=== PATIENT | female | born 1990 | race African-American/Black ===

== ENCOUNTER 2019-01-14 13:35 | Emergency (ER) | payer SELFPAY ==
[~2019-01-14] VITALS: Ht 167.6 cm; Wt 71.2 kg
--- OUTSIDE RECORDS SUMMARY | 2019-01-14 13:38 | XMS REPORT | Clinical Summary ---
Author Author POLINA [facility] Organization [facility] Address Unknown Phone Unavailable Care Team Providers Care Winch Driver Name Role Phone Pcp, No PCP Unavailable Allergies No Known Allergies Medications End Date Status Medication Sig Dispensed Refills Start Date 08/08/2018 ibuprofen (ADVIL,MOTRIN) Take 1 tablet 21 tablet 0 800 MG tablet (800 mg 9 total) by mouth 3 (three) times daily for 7 days. Active Problems Problem Noted Date Leukocytes in urine 08/31/2014 Pelvic pain complicating 08/31/2014 Encounters Care Team Description Date Type Specialty Asher Lopez MD Acute bilateral low back pain without sciatica (Primary Dx) 12/25/2018 Emergency Emergency Medicine 12/25/2018 Travel Hortencia Elizabeth MD Sore throat (Primary Dx); Cough; Cervical adenopathy; Strep pharyngitis 08/01/2018 Emergency Emergency Medicine 08/01/2018 Travel after 01/13/2018 Family History Medical History Relation Name Comments Unremarkable Neg Hx Social History Date Tobacco Use Types Packs/Day Years Used Never Smoker Smokeless Tobacco: Never Used Alcohol Use Drinks/Week oz/Week Comments No Sex Assigned at Date Recorded Not on file Industry Job Start Date Occupation Not on file Not on file Not on file Travel End Travel History Travel Start No recent travel history available. Last Filed Vital Signs Time Taken Vital Sign Reading 12/25/2018 3:43 PM CDT Blood Pressure 119/58 12/25/2018 3:43 PM CDT Pulse 64 12/25/2018 3:43 PM CDT Temperature 36.8 C (98.2 F) 12/25/2018 3:43 PM CDT Respiratory Rate 18 12/25/2018 3:43 PM CDT Oxygen Saturation 98% - Inhaled Oxygen - Concentration 12/25/2018 3:43 PM CDT Weight 76.2 kg (168 lb) - Height - 12/25/2018 3:43 PM CDT Body Mass Index 26.31 Plan of Treatment Not on file Procedures Comments Procedure Name Priority Date/Time Associated Diagnosis SCREEN, URINE STAT 12/25/2018 3:51 PM CDT URINALYSIS W/ MICROSCOPIC STAT 12/25/2018 3:51 PM CDT RAPID STREP A SCREEN STAT 08/01/2018 1:05 PM BUSINESS MAIL ENTRY CLERK after 01/13/2018 Results * Screen, urine (12/25/2018 3:51 PM CDT) Preg Test, Ur Negative [facility], [facility] Specimen Urine Performing Organization Address City/State/Zipcode Phone Number [facility] [phone] [place], [place] [id number] [facility], [facility], [facility] * Urinalysis w/Microscopic (12/25/2018 3:51 PM CDT) Color, UA Yellow [facility] Clarity, UA Clear [facility] Specific [place], UA 1.002Comment: Test performed 1.001 - 1.035 [facility] on refractometer [facility] pH, UA 6.5 5.0 - 8.0 [facility] Protein, UA Negative Negative [facility] Glucose, UA Negative Negative [facility] Ketones, UA Negative Negative [facility] Bilirubin, UA Negative Negative [facility], [facility], [facility] Blood, UA Negative Negative [facility] Nitrite, UA Negative Negative [facility] Leukocytes, UA Negative Negative [facility] Urobilinogen, UA 0.2 0.2 - 1.0 mg/dL [facility] Bacteria, UA None Seen [facility] RBC, UA <5 /HPF [facility] WBC, UA <5 /HPF [facility] SQUAMOUS EPITHELIAL <5 /HPF [facility] Specimen Source [facility] Specimen Urine Performing Organization Address City/[facility]/Zipcode Phone Number [address] [address] [facility] * Rapid Strep A screen (08/01/2018 1:05 PM BUSINESS MAIL ENTRY CLERK) Strep A Ag Positive (A) Negative [facility] Specimen Throat Performing Organization Address City/[facility]/Zipcode Phone Number [address] [address] [facility] after 01/13/2018
--- OUTSIDE RECORDS SUMMARY | 2019-01-14 13:38 | XMS REPORT ---
Author Author [facility] Address Unknown Phone Unavailable Care Team Providers Care Single Ending Machine Operator Name Role Phone MARC LOPEZ Unavailable Unavailable LAWANDA PRO Unavailable Unavailable RAPHAEL WALTER Unavailable Unavailable DAVID GARCIA Unavailable Unavailable Problems This patient has no known problems. Allergies, Adverse Reactions, Alerts This patient has no known allergies or adverse reactions. Medications This patient has no known medications. Results Test Description Test Time Test Comments Text Results Atomic Results Result Comments URINALYSIS W/ MICROSCOPIC 2018-12-25 16:01:00 COLOR (BEAKER) (test amce=079) Yellow CLARITY (BEAKER) (test owtm=488) Clear SPECIFIC GRAVITY UA (BEAKER) (test vdmk=203) 1.002 1.001-1.035 Test performed on refractometer PH UA (BEAKER) (test dmve=935) 6.5 5.0-8.0 PROTEIN UA (BEAKER) (test rddl=702) Negative Negative GLUCOSE UA (BEAKER) (test lxts=628) Negative Negative KETONES UA (BEAKER) (test rjkz=436) Negative Negative BILIRUBIN UA (BEAKER) (test ohha=077) Negative Negative BLOOD UA (BEAKER) (test csxp=696) Negative Negative NITRITE UA (BEAKER) (test ujno=137) Negative Negative LEUKOCYTE ESTERASE UA (BEAKER) (test tpog=074) Negative Negative UROBILINOGEN UA (BEAKER) (test zzsf=699) 0.2 mg/dL 0.2-1.0 BACTERIA (BEAKER) (test knpk=973) None Seen RBC UA-MANUAL (BEAKER) (test bryi=8959) <5 /HPF WBC UA-MANUAL (BEAKER) (test veby=9723) <5 /HPF SQUAMOUS EPITHELIAL MANUAL (BEAKER) (test kevj=7074) <5 /HPF SOURCE(BEAKER) (test pulq=7494) SCREEN, [id number] 15:58:00* Test Item Value Reference Range Comments TEST URINE (BEAKER) (test xyxd=354) Negative RAPID STREP A [id number] 13:27:00* Test Item Value Reference Range Comments STREP A ANTIGEN (BEAKER) (test jltb=719) Positive Negative CBC W/PLT COUNT & AUTO [id number] 23:32:00* Test Item Value Reference Range Comments WHITE BLOOD CELL COUNT (BEAKER) (test gvsi=757) 7.1 10e3/i? L 4.0-10.0 RED BLOOD CELL COUNT (BEAKER) (test reuw=268) 3.89 10e6/i? L 4.00-5.00 HEMOGLOBIN (BEAKER) (test yghm=964) 11.7 g/dL 12.0-15.0 HEMATOCRIT (BEAKER) (test nzdp=786) 36.3 % 36.0-45.0 MEAN CORPUSCULAR VOLUME (BEAKER) (test ylay=737) 93.2 fL 82.0-99.0 MEAN CORPUSCULAR HEMOGLOBIN (BEAKER) (test gkjc=962) 30.0 pg 27.0-33.0 MEAN CORPUSCULAR HEMOGLOBIN CONC (BEAKER) (test mzqg=945) 32.2 g/dL 32.0-36.0 RED CELL DISTRIBUTION WIDTH (BEAKER) (test dmxx=407) 12.0 % 10.3-14.2 PLATELET COUNT (BEAKER) (test cquh=861) 170 10e3/i? L 150-430 MEAN PLATELET VOLUME (BEAKER) (test liez=164) 9.2 fL 6.5-10.5 NEUTROPHILS RELATIVE PERCENT (BEAKER) (test bvuh=411) 43 % LYMPHOCYTES RELATIVE PERCENT (BEAKER) (test jhut=309) 44 % MONOCYTES RELATIVE PERCENT (BEAKER) (test rkwx=950) 8 % EOSINOPHILS RELATIVE PERCENT (BEAKER) (test qhsx=466) 5 % BASOPHILS RELATIVE PERCENT (BEAKER) (test mizr=680) 1 % NEUTROPHILS ABSOLUTE COUNT (BEAKER) (test jubg=641) 3.03 10e3/i? L 1.80-8.00 LYMPHOCYTES ABSOLUTE COUNT (BEAKER) (test teuj=174) 3.13 10e3/i? L 1.48-4.50 MONOCYTES ABSOLUTE COUNT (BEAKER) (test qmnu=966) 0.57 10e3/i? L 0.00-1.30 EOSINOPHILS ABSOLUTE COUNT (BEAKER) (test rtio=543) 0.32 10e3/i? L 0.00-0.50 BASOPHILS ABSOLUTE COUNT (BEAKER) (test mxkg=538) 0.04 10e3/i? L 0.00-0.20 BASIC METABOLIC [id number] 23:28:00* Test Item Value Reference Range Comments SODIUM (BEAKER) (test mycq=317) 141 meq/L 135-148 POTASSIUM (BEAKER) (test howl=570) 3.5 meq/L 3.6-5.5 CHLORIDE (BEAKER) (test nuyw=772) 106 meq/L 98-106 CO2 (BEAKER) (test bubb=545) 25 meq/L 24-32 BLOOD UREA NITROGEN (BEAKER) (test eqnt=570) 8 mg/dL 10-26 CREATININE (BEAKER) (test iwgb=388) 0.66 mg/dL 0.50-1.20 GLUCOSE RANDOM (BEAKER) (test uvzb=355) 98 mg/dL 70-110 CALCIUM (BEAKER) (test oskk=567) 9.1 mg/dL 8.5-10.5 EGFR (BEAKER) (test uzbd=7159) 128 mL/min/1.73 sq m ESTIMATED GFR IS NOT ACCURATE CREATININE CLEARANCE IN PREDICTING GLOMERULAR FILTRATION RATE. ESTIMATED GFR IS NOT APPLICABLE FOR DIALYSIS PATIENTS. CREATINE KINASE (CK)2017-12-31 23:28:00* Test Item Value Reference Range Comments CREATINE KINASE TOTAL (BEAKER) (test iegw=852) 58 U/L 25-235 SCREEN, [id number] 23:20:00* Test Item Value Reference Range Comments TEST URINE (BEAKER) (test mfot=484) Negative RAD, CHEST, 2 [id number] 20:24:00Reason for exam:->SHORTNESS OF BREATHIs the patient ?->NoShould this be performed at the bedside?->NoFINAL REPORT Examination: Two view Chest X-ray. CLINICAL HISTORY: Shortness of breath COMPARISON:None. The cardiomediastinal and hilar c ontours are unremarkable. There is no focal consolidation, pleural effusion, pne umothorax or evidence of overt pulmonary edema. There is no acute bony abnorma lity. IMPRESSION: No acute abnormality. Signed: Jamel Davies MDReport Verified Date/Time: 10/21/2017 20:24:17 Reading [facility] [address] [facility] [place] [facility] SCREEN, [id number] 20:40:00* Test Item Value Reference Range Comments TEST URINE (BEAKER) (test dfmm=656) Positive URINALYSIS W/ [id number] 20:40:00* Test Item Value Reference Range Comments COLOR (BEAKER) (test twhi=617) Yellow CLARITY (BEAKER) (test okiz=319) Clear SPECIFIC GRAVITY UA (BEAKER) (test vhnk=930) 1.032 1.001-1.035 PH UA (BEAKER) (test weco=329) 5.5 5.0-8.0 PROTEIN UA (BEAKER) (test bwbm=297) Negative Negative GLUCOSE UA (BEAKER) (test jgoc=717) Negative Negative KETONES UA (BEAKER) (test qncd=205) Negative Negative BILIRUBIN UA (BEAKER) (test pznd=109) Negative Negative BLOOD UA (BEAKER) (test vjiv=993) Negative Negative NITRITE UA (BEAKER) (test qmet=631) Negative Negative LEUKOCYTE ESTERASE UA (BEAKER) (test gdls=443) Trace Negative UROBILINOGEN UA (BEAKER) (test bauk=884) 2.0 mg/dL 0.2-1.0 RBC UA-MANUAL (BEAKER) (test zowt=9289) <5 /HPF WBC UA-MANUAL (BEAKER) (test http=6276) <5 /HPF SQUAMOUS EPITHELIAL MANUAL (BEAKER) (test anur=8518) <5 /HPF SOURCE(BEAKER) (test rvsl=7151)
[2019-01-14] MEDS ORDERED: ACETAMINOPHEN 325 MG TAB PO ONE (14:00)
[2019-01-14] MEDS ORDERED: IBUPROFEN 200 MG TAB PO ONE (14:00)
[2019-01-14] MEDS ORDERED: ACETAMINOPHEN 325 MG TAB ONE (14:27)
[2019-01-14] MEDS ORDERED: IBUPROFEN 200 MG TAB ONE (14:27)
--- NOTE | 2019-01-14 15:27 | Diagnostic Imaging Report ---
EXAMINATION: CXR 2 VIEW - HOPD INDICATION: Chest pain COMPARISON: None FINDINGS: LINES/TUBES:None LUNGS:The lungs are well-inflated. No focal consolidation or pulmonary edema. PLEURA:No pleural effusion or pneumothorax. MEDIASTINUM:The cardiomediastinal silhouette appears normal in size and shape. BONES/SOFT TISSUES:No acute osseous injury. ABDOMEN:No free air under the diaphragm. IMPRESSION: No focal pneumonia or pulmonary edema. Signed by: Sahra Junior MD on 01/14/2019 3:24 PM
== END 2019-01-14 15:13 | disposition home or self-care (01) ==
LOC: FSED 13:35
DX: R07.89 Other chest pain (principal); R06.00 Dyspnea, unspecified
CPT/HCPCS: 71046; 80048; 80076; 82553; 83880; 84484; 85025; 85379; 93005; 99284

== ENCOUNTER 2019-12-29 13:14 | Emergency (ER) | payer MEDICARE, OTHER ==
[~2019-12-29] VITALS: Ht 170.2 cm; Wt 84.2 kg
--- NOTE | 2019-12-29 14:08 | Emergency Department Note ---
History of Present Illnes History of Present Illness Chief Complaint: Extremity Trauma/Pain History of Present Illness This is a 29 year old female Chief Complaint Comment Reports that when she sits on her leg at work in her chair and gets up and tries to walk it is numb and tingly and when she holds her phone in her hand for a long time her hand goes numb and has tingling. Pt has bilateral leg swelling after sitting for long periods of time at work. Pt was just here recently and had a CT, EKG and full work up for the exact same symptoms. . Historian: Patient Arrival Mode: Car Onset (how long ago): day(s) (3) Location: legs Quality: numbness Radiation: Denies non-radiation, Denies back, Denies neck, Denies extremity, Denies abdomen, Denies periumbilical, Denies flank, Denies proximal, Denies distal, Denies other Severity: mild Onset quality: gradual Duration (how long): day(s) (4) Timing of current episode: intermittent Progression: waxing and waning Chronicity: new Context: Denies recent illness, Denies recent surgery, Denies recent immobilization, Denies recent travel, Denies trauma/injury, Denies new medications, Denies hx of DVT/PE, Denies non-compliance w/ medications, Denies other Relieving factors: none Exacerbating factors: none Associated symptoms: Denies denies other symptoms, Denies confusion, Denies chest pain, Denies cough, Denies diaphoresis, Denies fever/chills, Denies headaches, Denies loss of appetite, Denies malaise, Denies nausea/vomiting, Denies rash, Denies seizure, Denies shortness of breath, Denies syncope, Denies weakness, Denies other Treatments prior to arrival: none Past Medical/Family History Physician Review I have reviewed the patient's past medical and family history. Any updates have been documented here. Past Medical History Recent Fever: No Clinical Suspicion of Infectio: No New/Unexplained Change in Ment: No Past Medical History: None Past Surgical History: Social History Smoking Cessation: Never Smoker Alcohol Use: Social Physically hurt or threatened: No Other Last Tetanus: UNK Review of Systems Review of Systems Constitutional: Reports no symptoms EENTM: Reports no symptoms Cardiovascular: Reports no symptoms Respiratory: Reports no symptoms Gastrointestinal: Reports no symptoms Genitourinary: Reports no symptoms Musculoskeletal: Reports as per HPI Integumentary: Reports no symptoms Neurological: Reports no symptoms Psychological: Reports no symptoms Endocrine: Reports no symptoms Hematological/Lymphatic: Reports no symptoms Physical Exam Related Data Allergies: Coded Allergies: No Known Drug Allergies (Verified Allergy, Mild, 06/13/09) Triage Vital Signs Vital Signs Date Time Temp Pulse Resp B/P (MAP) Pulse Ox O2 Delivery O2 Flow Rate FiO2 12/29/19 13:25 98.4 62 16 116/56 100 Room Air Vital signs reviewed: Yes Physical Exam CONSTITUTIONAL Constitutional: Present well-developed, Present well-nourished HENT HENT: Present normocephalic, Present atraumatic, Present oropharynx cl ear/moist, Present nose normal HENT L/R: Present left ext ear normal, Present right ext ear normal EYES Eyes: Reports PERRL, Reports conjunctivae normal NECK Neck: Present ROM normal PULMONARY Pulmonary: Present effort normal, Present breath sounds normal CARDIOVASCULAR Cardiovascular: Present regular rhythm, Present heart sounds normal, Present capillary refill normal, Present normal rate GASTROINTESTINAL Abdominal: Present soft, Present nontender, Present bowel sounds normal GENITOURINARY Genitourinary: Present exam deferred SKIN Skin: Present warm, Present dry MUSCULOSKELETAL Musculoskeletal: Present ROM normal NEUROLOGICAL Neurological: Present alert, Present oriented x 3, Present no gross motor or sensory deficits PSYCHOLOGICAL Psychological: Present mood/affect normal, Present judgement normal Assessment & Plan Medical Decision Making MDM edema neuropathy Reassessment Reassessment better Assessment & Plan Final Impression: (1) Pedal edema Depart Disposition: HOME, SELF-CARE Last Vital Signs Date Time Temp Pulse Resp B/P (MAP) Pulse Ox O2 Delivery O2 Flow Rate FiO2 12/29/19 13:25 98.4 62 16 116/56 100 Room Air ARMANDO LOPEZ MD Dec 29, 2019 14:08
--- OUTSIDE RECORDS SUMMARY | 2020-01-01 19:13 | XMS REPORT | Clinical Summary ---
Author Author POLINA [facility] Organization [facility] Address Unknown Phone Unavailable Care Team Providers Care Student Ministries Director Name Role Phone Blade, Delonte Burnette MD PCP Unavailable Allergies No Known Allergies Medications No known medications Active Problems Problem Noted Date Leukocytes in urine 08/31/2014 Pelvic pain complicating 08/31/2014 Encounters Care Team Description Date Type Specialty Addi Monte MD Pelvic pain in female (Primary Dx) 05/18/2019 Emergency Emergency Medicine 05/18/2019 Travel after 12/28/2018 Family History Medical History Relation Name Comments [...] Vital Signs Time Taken Vital Sign Reading 05/18/2019 10:55 AM INTERACTIVE MEDIA MARKETING STRATEGIST Blood Pressure 123/76 05/18/2019 11:57 AM INTERACTIVE MEDIA MARKETING STRATEGIST Pulse 58 05/18/2019 11:57 AM INTERACTIVE MEDIA MARKETING STRATEGIST Temperature 36.6 C (97.9 F) 05/18/2019 11:57 AM INTERACTIVE MEDIA MARKETING STRATEGIST Respiratory Rate 18 05/18/2019 11:57 AM INTERACTIVE MEDIA MARKETING STRATEGIST Oxygen Saturation 97% - Inhaled Oxygen - Concentration 05/18/2019 10:55 AM INTERACTIVE MEDIA MARKETING STRATEGIST Weight 77.1 kg (170 lb) 05/18/2019 10:55 AM INTERACTIVE MEDIA MARKETING STRATEGIST Height 170.2 cm (5' 7") 05/18/2019 10:55 AM INTERACTIVE MEDIA MARKETING STRATEGIST Body Mass Index 26.63 Plan of Treatment Not on file Procedures Comments Procedure Name Priority Date/Time Associated Diag nosis URINALYSIS W/ REFLEX STAT 05/18/2019 URINE CULTURE 11:08 AM INTERACTIVE MEDIA MARKETING STRATEGIST SCREEN, URINE STAT 05/18/2019 11:08 AM INTERACTIVE MEDIA MARKETING STRATEGIST after 12/28/2018 Results * Urinalysis w/Microscopic + Reflex to Culture (05/18/2019 11:08 AM INTERACTIVE MEDIA MARKETING STRATEGIST) Color, UA Yellow [facility] Clarity, UA Clear [facility] Specific [place], UA 1.020 1.001 - 1.035 [facility] pH, UA 7.0 5.0 - 8.0 [facility] Protein, UA Negative Negative [facility] Glucose, UA Negative Negative [facility] Ketones, UA Negative Negative [facility] Bilirubin, UA Negative Negative [facility] Blood, UA Negative Negative [facility] Nitrite, UA Negative Negative [facility] Leukocytes, UA Negative Negative [facility] Urobilinogen, UA 1.0 0.2 - 1.0 mg/dL [facility] RBC, UA <5 /HPF [facility] WBC, UA <5 /HPF [facility] SQUAMOUS EPITHELIAL <5 /HPF [facility] Specimen Source [facility] Specimen Urine Performing Organization Address City/State/Zipcode Ph one Number POLINA MARIN [address] [place] [address] [facility] [place] * Screen, urine (05/18/2019 11:08 AM INTERACTIVE MEDIA MARKETING STRATEGIST) Preg Test, Ur Negative [facility] Specimen Urine Performing Organization Address City/[facility]/Zipcode Ph one Tony MARIN [address] [place] [address] [facility] [place] after 12/28/2018
--- OUTSIDE RECORDS SUMMARY | 2020-01-01 19:14 | XMS REPORT | Continuity of Care Document ---
Author Author [facility] t Organization [facility] Address [address] [place] [address] Phone Unavailable Care Team Providers Care Taste Tester Name Role Phone NONSTAFF PCP Unavailable Hardy Monte MD Attphys HARDY MONTE Attphys Unavailable Alyssa CALLAHAN Attphys Unavailable MARC LOPEZ Attphys Unavailable LAWANDA PRO Attphys Unavailable RAPHAEL WALTER Attphys Unavailable DAVID GARCIA Attphys Unavailable Payers Payer Name Policy Type Policy Number Effective Date Expiration Date Karma Goldstein Ppo [id number] 2008 00:00:00 [facility] Problems Condition Name Condition Details Condition Category Status Onset Date Resolution Date Last Treatment Date Treating Clinician Comments Source Leukocytes in urine Leukocytes in urine Disease Active 2014-08-31 00:00 :00 [facility] Pelvic pain complicating Pelvic pain complicating preg junie Disease Active 2014-08-31 00:00:00 [facility] Edema of foot Problem Active I [facility] Allergies, Adverse Reactions, Alerts Allergy Name Allergy Type Status Severity Reaction(s) Onset Date Inacti ve Date Treating Clinician Comments Source No Known Allergies DA Active U 2016-06-23 00:00:00 [facility] [place] Family History Family Member Diagnosis Comments Start Date Stop Date Source Family member Unremarkable [facility] Social History Social Habit Start Date Stop Date Quantity Comments Source Sex Assigned At [facility] Smoking Status Start Date Stop Date Source Never smoker [facility] Medications This patient has no known medications. Vital Signs Vital Name Observation Time Observation Value Comments Source Weight 2019-12-29 13:25:00 185.56 [lb_av] [facility] BMI (Body Mass Index) 2019-12-29 13:25:00 29.1 kg/m2 [facility] Heart rate 2019-05-18 11:57:00 58 /min [facility] Body temperature 2019-05-18 11:57:00 36.61 Caprice [facility] Respiratory rate 2019-05-18 11:57:00 18 /min [facility] Oxygen saturation in Arterial blood by Pulse oximetry 2018-06 11:57:00 97 [facility] pressure 2019-05-18 10:55:00 123 mm[Hg] [facility] Diastolic blood pressure 2019-05-18 10:55:00 76 mm[Hg] [facility] Body height 2019-05-18 10:55:00 170.2 cm [facility] Body weight Measured 2019-05-18 10:55:00 77.111 kg [facility] BMI 2019-05-18 10:55:00 26.63 kg/m2 [facility] Procedures Procedure Date / Time Performed Performing Clinician [facility] e SCREEN, URINE 2019-05-18 11:08:00 LavellAddi colon [facility] URINALYSIS W/ REFLEX URINE CULTURE 2019-05-18 11:08:00 Addi Monte [facility] Plan of Care Planned Activity Planned Date Details Comments Source Instructions Dependent Edema [facility] Encounters Start Date/Time End Date/Time Encounter Type Admission Type [facility] Facility Care Department Encounter ID Source 2019-12-29 13:37:00 2019-12-29 14:10:00 Departed Emergency Room [facility] Center [id number] [facility] dical Center 2019-01-14 13:35:00 2019-01-14 13:35:00 Registered Emergency Room 1 LIZZETH CALLAHAN [facility] [id number] [facility] Results Test Description Test Time Test Comments Results Result Comments Source UR HCG QUAL 2019-06-15 14:45:00 Test Item UR HCG QUAL (test code = HCGQLU) NEGATIVE NEGATIVE - XR CHEST 1 [id number] 13:05:00 Name: ELEN SWAIN [facility]ly [facility] : 1990 Age/S: 28 / F [id number] [place] Unit #: [id number] Loc: [place] [address] Phys: Tena Cramer MD Acct: [id number] Dis Date: Status: REG ER PHONE #: [phone] Exam Date: 06/15/2019 1255 FAX #: Reason: chest pain EXAMS: CPT: [id number] XR CHEST 1 V 58632 Fluoro Time: DAP (Gy m2): Air Kerma (mGy): Location of dictation: B2 Portable chest one view. HISTORY: chest pain COMMENT: No comparison. The heart and mediastinum are normal. The lungs are clear. Visualized soft tissues and skeletal structures are unremarkable. IMPRESSION: No active disease in the chest. at 1305 Reported and signed by: Tawnya Prado M.D. CC: Tena Cramer MD; Teri CONTRERAS PAGE 1 Signed Report Name: ELEN SWAIN [facility] : 1990 Age/S: 28 / F [id number] Unit #: [id number] Loc: [place] [address] Phys: Tena Cramer MD Acct: [id number] Dis Date: Status: REG ER PHONE #: [phone] Exam Date: 06/15/2019 1255 FAX #: Reason: chest pain EXAMS: CPT: [id number] XR CHEST 1 V 70464 Fluoro Time: DAP (Gy m2): Air Kerma (mGy): < Continued> Technologist: Lola Last, RT(R)(CT); Nicole Kenney RT(R) [facility] Date/Time: 06/15/2019 (9255) AndiePXC Orig Print D/T: S: 06/15/2019 (8562) PAGE 2 Signed Report TROPONIN I RAPID 2019-06-15 12:54:00* Test Item Value Reference Range Interpretation Comments TROPONIN I RAPID (test code = TROPIRAP) 0.01 ng/mL 0.00-0.08 N - The use of serial sampling and testing protocol is a recommended practice- An elevated troponin level alone is often not sufficient for diagnosis of myocardial infarction. CHEMISTRY 8 [id number] 12:53:00* Test Item Value Reference Range Interpretation Comments ISTAT-SODIUM (test code = NAP) mmol/L 135-146 ISTAT-POTASSIUM (test code = KP) mmol/L 3.5-4.9 ISTAT-CHLORIDE (test code = CLP) mmol/L 98-109 ISTAT-CARBON DIOXIDE (test code = ISTAT-CO2) mmol/L 24-29 L ISTAT CALCIUM IONIZED (test code = ISTAT-MARIA LUZ) mmol/L 1.12-1.3 2 ISTAT-GLUCOSE (test code = GLUP) mg/dL 70-105 N ISTAT-BUN (test code = BUNP) mg/dL 8-26 L BEDSIDE CREATININE (test code = CREATBED) mg/dL 0.6-1.3 N GLOMERULAR FILTRATION RATE POC (test code = GFRBED) 108 64 -149 N CHEMISTRY 8 [id number] 12:53:00* Test Item Value Reference Range Interpretation Comments ISTAT-SODIUM (test code = NAP) 140 mmol/L 135-146 N ISTAT-POTASSIUM (test code = KP) 3.6 mmol/L 3.5-4.9 N ISTAT-CHLORIDE (test code = CLP) 107 mmol/L 98-109 N ISTAT-CARBON DIOXIDE (test code = ISTAT-CO2) 23 mmol/L 24-29 L ISTAT CALCIUM IONIZED (test code = ISTAT-MARIA LUZ) 1.21 mmol/L 1.12-1.3 2 N ISTAT-GLUCOSE (test code = GLUP) 103 mg/dL 70-105 N ISTAT-BUN (test code = BUNP) 6 mg/dL 8-26 L BEDSIDE CREATININE (test code = CREATBED) 0.8 mg/dL 0.6-1.3 N GLOMERULAR FILTRATION RATE POC (test code = GFRBED) 108 64 -149 N CREATINE KINASE (CK)2019-06-15 12:50:00* Test Item Value Reference Range Interpretation Comments CREATINE KINASE (CK) (test code = CK) 356 Unit/L 26-192 H CBC W/O [id number] 12:43:00* Test Item Value Reference Range Interpretation Comments WHITE BLOOD CELL (test code = WBC) 7.0 K/mm3 3.5-11.0 N RED BLOOD CELL (test code = RBC) 4.00 M/mm3 4.70-6.10 L HEMOGLOBIN (test code = HGB) 12.1 G/DL 10.4-14.9 N HEMATOCRIT (test code = HCT) 36.0 % 31.5-44.1 N MEAN CELL VOLUME (test code = MCV) 90.0 Fl 84.5-98.6 N MEAN CELL HGB (test code = MCH) 30.3 pg 27.0-34.2 N MEAN CELL HGB CONCETRATION (test code = MCHC) 33.6 G/DL 31.5-34. 0 N RED CELL DISTRIBUTION WIDTH (test code = RDW) 12.5 SD 11.5-14. 5 N PLATELET COUNT (test code = PLT) 214.0 K/mm3 150-450 N MEAN PLATELET VOLUME (test code = MPV) 11.80 fL 7.0-10.5 H Urinalysis w/Microscopic + Reflex to [id number] 11:26:00* Test Item Value Reference Range Interpretation Comments Color, UA (test code = 5778-6) Yellow Clarity, UA (test code = 5767-9) Clear Specific [place], UA (test code = 5811-5) 1.020 1.001-1.035 pH, UA (test code = 5803-2) 7.0 5.0-8.0 Protein, UA (test code = 55999-9) Negative Negative Glucose, UA (test code = 365) Negative Negative Ketones, UA (test code = 2514-8) Negative Negative Bilirubin, UA (test code = 13738-9) Negative Negative Blood, UA (test code = 42289-0) Negative Negative Nitrite, UA (test code = 5802-4) Negative Negative Leukocytes, UA (test code = 5799-2) Negative Negative Urobilinogen, UA (test code = 33406-6) 1.0 mg/dL 0.2-1 RBC, UA (test code = 799-7) <5 /HPF WBC, UA (test code = 30576-7) <5 /HPF SQUAMOUS EPITHELIAL (test code = 71780-7) <5 /HPF Specimen Source (test code = 2795) [facility] [id number] 11:26:00* Test Item Value Reference Range Interpretation Comments COLOR (BEAKER) (test code = 470) Yellow CLARITY (BEAKER) (test code = 469) Clear SPECIFIC GRAVITY UA (BEAKER) (test code = 468) 1.020 1.001-1 .035 PH UA (BEAKER) (test code = 467) 7.0 5.0-8.0 PROTEIN UA (BEAKER) (test code = 464) Negative Negative GLUCOSE UA (BEAKER) (test code = 365) Negative Negative KETONES UA (BEAKER) (test code = 371) Negative Negative BILIRUBIN UA (BEAKER) (test code = 462) Negative Negative BLOOD UA (BEAKER) (test code = 461) Negative Negative NITRITE UA (BEAKER) (test code = 465) Negative Negative LEUKOCYTE ESTERASE UA (BEAKER) (test code = 466) Negative Negat jessica UROBILINOGEN UA (BEAKER) (test code = 463) 1.0 mg/dL 0.2-1.0 RBC UA-MANUAL (BEAKER) (test code = 1659) <5 /HPF WBC UA-MANUAL (BEAKER) (test code = 1661) <5 /HPF SQUAMOUS EPITHELIAL MANUAL (BEAKER) (test code = 1663) <5 /HPF SOURCE(BEAKER) (test code = 2795) Screen, [id number] 11:16:00* Test Item Value Reference Range Interpretation Comments Preg Test, Ur (test code = 2112-1) Negative [facility] [id number] 11:16:00* Test Item Value Reference Range Interpretation Comments TEST URINE (BEAKER) (test code = 583) Negative CXR 2 VIEW - [id number] 15:23:00 [facility] [address] [address] Patient Name: ELEN SWAIN MR #: [id number] : 1990 Age/Sex: 28/F Req #: [id number] Adm Physician: Ordered by: LIZZETH CALLAHAN MD Report #: [id number] Location: [facility] Room/Bed: Procedure: [id number] HOP D/CXR 2 VIEW - HOPD Exam Date: 01/14/19 Exam Time: 1 417 REPORT STATUS: Signed EXAMIN ATION: CXR 2 VIEW - HOPD INDICATION: Chest pain COMPARISON: None FINDINGS: LINES/TUBES:None LUNGS:The lungs are well-inflated . No focal consolidation or pulmonary edema. PLEURA:No pleural effusion or pneumothorax. MEDIASTINUM:The cardiomediastinal silhouette appears normal i n size and shape. BONES/SOFT TISSUES:No acute osseous injury. ABDOMEN: No free air under the diaphragm. IMPRESSION: No focal pneumonia or pu lmonary edema. Signed by: Analy Aparicio MD on 01/14/2019 3:24 PM Dictat ed By: ANALY APARICIO MD 1524 Transcribed By: EMERY on 01/14/19 1524 COPY TO: LIZZETH CALLAHAN MD URINALYSIS W/ [id number] 16:01:00* Test Item Value Reference Range Interpretation Comments COLOR (BEAKER) (test code = 470) Yellow CLARITY (BEAKER) (test code = 469) Clear SPECIFIC GRAVITY UA (BEAKER) (test code = 468) 1.002 1.001-1 .035 Test performed on refractometer PH UA (BEAKER) (test code = 467) 6.5 5.0-8.0 PROTEIN UA (BEAKER) (test code = 464) Negative Negative GLUCOSE UA (BEAKER) (test code = 365) Negative Negative KETONES UA (BEAKER) (test code = 371) Negative Negative BILIRUBIN UA (BEAKER) (test code = 462) Negative Negative BLOOD UA (BEAKER) (test code = 461) Negative Negative NITRITE UA (BEAKER) (test code = 465) Negative Negative LEUKOCYTE ESTERASE UA (BEAKER) (test code = 466) Negative Negat jessica UROBILINOGEN UA (BEAKER) (test code = 463) 0.2 mg/dL 0.2-1.0 BACTERIA (BEAKER) (test code = 517) None Seen RBC UA-MANUAL (BEAKER) (test code = 1659) <5 /HPF WBC UA-MANUAL (BEAKER) (test code = 1661) <5 /HPF SQUAMOUS EPITHELIAL MANUAL (BEAKER) (test code = 1663) <5 /HPF SOURCE(BEAKER) (test code = 2795) SCREEN, [id number] 15:58:00* Test Item Value Reference Range Interpretation Comments TEST URINE (BEAKER) (test code = 583) Negative RAPID STREP A [id number] 13:27:00* Test Item Value Reference Range Interpretation Comments STREP A ANTIGEN (BEAKER) (test code = 556) Positive Negative A CBC W/PLT COUNT & AUTO [id number] 23:32:00* Test Item Value Reference Range Interpretation Comments WHITE BLOOD CELL COUNT (BEAKER) (test code = 775) 7.1 10e3/i? L 4.0 -10.0 RED BLOOD CELL COUNT (BEAKER) (test code = 761) 3.89 10e6/i? L 4.00 -5.00 L HEMOGLOBIN (BEAKER) (test code = 410) 11.7 g/dL 12.0-15.0 L HEMATOCRIT (BEAKER) (test code = 411) 36.3 % 36.0-45.0 MEAN CORPUSCULAR VOLUME (BEAKER) (test code = 753) 93.2 fL 82. 0-99.0 MEAN CORPUSCULAR HEMOGLOBIN (BEAKER) (test code = 751) 30.0 pg 27.0-33.0 MEAN CORPUSCULAR HEMOGLOBIN CONC (BEAKER) (test code = 752) 32.2 g/dL 32.0-36.0 RED CELL DISTRIBUTION WIDTH (BEAKER) (test code = 412) 12.0 % 10.3-14.2 PLATELET COUNT (BEAKER) (test code = 756) 170 10e3/i? L 150-430 MEAN PLATELET VOLUME (BEAKER) (test code = 754) 9.2 fL 6.5-10 .5 NEUTROPHILS RELATIVE PERCENT (BEAKER) (test code = 429) 43 % LYMPHOCYTES RELATIVE PERCENT (BEAKER) (test code = 430) 44 % MONOCYTES RELATIVE PERCENT (BEAKER) (test code = 431) 8 % EOSINOPHILS RELATIVE PERCENT (BEAKER) (test code = 432) 5 % BASOPHILS RELATIVE PERCENT (BEAKER) (test code = 437) 1 % NEUTROPHILS ABSOLUTE COUNT (BEAKER) (test code = 670) 3.03 10e3/ i? L 1.80-8.00 LYMPHOCYTES ABSOLUTE COUNT (BEAKER) (test code = 414) 3.13 10e3/ i? L 1.48-4.50 MONOCYTES ABSOLUTE COUNT (BEAKER) (test code = 415) 0.57 10e3/i? L 0.00-1.30 EOSINOPHILS ABSOLUTE COUNT (BEAKER) (test code = 416) 0.32 10e3/ i? L 0.00-0.50 BASOPHILS ABSOLUTE COUNT (BEAKER) (test code = 417) 0.04 10e3/i? L 0.00-0.20 BASIC METABOLIC [id number] 23:28:00* Test Item Value Reference Range Interpretation Comments SODIUM (BEAKER) (test code = 381) 141 meq/L 135-148 POTASSIUM (BEAKER) (test code = 379) 3.5 meq/L 3.6-5.5 L CHLORIDE (BEAKER) (test code = 382) 106 meq/L 98-106 CO2 (BEAKER) (test code = 355) 25 meq/L 24-32 BLOOD UREA NITROGEN (BEAKER) (test code = 354) 8 mg/dL 10-26 L CREATININE (BEAKER) (test code = 358) 0.66 mg/dL 0.50-1.20 GLUCOSE RANDOM (BEAKER) (test code = 652) 98 mg/dL 70-110 CALCIUM (BEAKER) (test code = 697) 9.1 mg/dL 8.5-10.5 EGFR (BEAKER) (test code = 1092) 128 mL/min/1.73 sq m ESTIMATED GFR IS NOT ACCURATE CREATININE CLEARANCE IN PREDICTING GLOMERULAR FILTRATION RATE. ESTIMATED GFR IS NOT APPLICABLE FOR DIALYSIS PATIENTS. CREATINE KINASE (CK)2017-12-31 23:28:00* Test Item Value Reference Range Interpretation Comments CREATINE KINASE TOTAL (BEAKER) (test code = 380) 58 U/L -23 5 SCREEN, [id number] 23:20:00* Test Item Value Reference Range Interpretation Comments TEST URINE (BEAKER) (test code = 583) Negative RAD, CHEST, 2 [id number] 20:24:00Reason for exam:->SHORTNESS OF BREATHIs the patient ?->NoShould this be performed at the bedside?->NoFINAL REPORT Examination: Two view Chest X-ray. CLINICAL HISTORY: Shortness of breath COMPARISON:None. The cardiomediastinal and hilar c ontours are unremarkable. There is no focal consolidation, pleural effusion, pne umothorax or evidence of overt pulmonary edema. There is no acute bony abnorma lity. IMPRESSION: No acute abnormality. Signed: Moe Germain MDReport Verified Date/Time: 10/21/2017 20:24:17 Reading Location: [address] P M SCREEN, [id number] 20:40:00* Test Item Value Reference Range Interpretation Comments TEST URINE (BEAKER) (test code = 583) Positive URINALYSIS W/ [id number] 20:40:00* Test Item Value Reference Range Interpretation Comments COLOR (BEAKER) (test code = 470) Yellow CLARITY (BEAKER) (test code = 469) Clear SPECIFIC GRAVITY UA (BEAKER) (test code = 468) 1.032 1.001-1 .035 PH UA (BEAKER) (test code = 467) 5.5 5.0-8.0 PROTEIN UA (BEAKER) (test code = 464) Negative Negative GLUCOSE UA (BEAKER) (test code = 365) Negative Negative KETONES UA (BEAKER) (test code = 371) Negative Negative BILIRUBIN UA (BEAKER) (test code = 462) Negative Negative BLOOD UA (BEAKER) (test code = 461) Negative Negative NITRITE UA (BEAKER) (test code = 465) Negative Negative LEUKOCYTE ESTERASE UA (BEAKER) (test code = 466) Trace Negat jessica A UROBILINOGEN UA (BEAKER) (test code = 463) 2.0 mg/dL 0.2-1.0 H RBC UA-MANUAL (BEAKER) (test code = 1659) <5 /HPF WBC UA-MANUAL (BEAKER) (test code = 1661) <5 /HPF SQUAMOUS EPITHELIAL MANUAL (BEAKER) (test code = 1663) <5 /HPF SOURCE(BEAKER) (test code = 0828)
== END 2019-12-29 14:10 | disposition home or self-care (01) ==
LOC: FSED 13:37
DX: R60.9 Edema, unspecified (principal); R20.2 Paresthesia of skin
CPT/HCPCS: 99282

== ENCOUNTER 2020-06-16 16:44 | Emergency (ER) | payer MEDICARE, OTHER ==
[~2020-06-16] VITALS: Ht 170.2 cm; Wt 83.9 kg
[2020-06-16] MEDS ORDERED: LASIX40 MG PO (17:32)
[2020-06-16] MEDS ORDERED: PREDNISONE20 MG PO (17:32)
== END 2020-06-16 17:48 | disposition home or self-care (01) ==
LOC: FSED 16:56
DX: R07.89 Other chest pain (principal); R60.9 Edema, unspecified
CPT/HCPCS: 93005; 99283

== ENCOUNTER 2022-01-23 17:32 | Emergency (ER) | payer OTHER ==
[~2022-01-23 17:32] MED LIST: LASIX40 MG PO; PREDNISONE20 MG PO
== END 2022-01-23 17:50 | disposition left against medical advice (07) ==
LOC: FSED 17:37
DX: R10.9 Unspecified abdominal pain (principal)

== ENCOUNTER 2022-05-04 17:22 | Emergency (ER) | payer OTHER ==
[~2022-05-04] VITALS: Ht 170.2 cm; Wt 79.4 kg
[2022-05-04] MEDS ORDERED: PANTOPRAZOLE SO40 MG PO (19:25)
[2022-05-04] MEDS ORDERED: MIRALAX17 GM PO (19:25)
[2022-05-04] MEDS ORDERED: FAMOTIDINE40 MG PO (19:26)
[2022-05-04 19:35] VITALS: BP 151/77
== END 2022-05-04 19:35 | disposition home or self-care (01) ==
LOC: FSED 17:38
DX: R10.31 Right lower quadrant pain (principal); K29.70 Gastritis, unspecified, without bleeding; K59.00 Constipation, unspecified; K45.8 Other specified abdominal hernia without obstruction or gangrene
CPT/HCPCS: 74176; 81003; 81025; 99283

== ENCOUNTER 2024-01-08 05:17 | Emergency (ER) | payer OTHER ==
[~2024-01-08] VITALS: Ht 170.2 cm; Wt 77.1 kg
[~2024-01-08 05:17] MED LIST changes: +FAMOTIDINE40 MG PO; +MIRALAX17 GM PO; +PANTOPRAZOLE SO40 MG PO
[2024-01-08] MEDS: ONDANSETRON HCL INJ 2MG/ML 2ML 2 MG/ML VIAL IV STA (05:54)
[2024-01-08] MEDS: KETOROLAC TROMETHAMINE 30 MG/ML VIAL IV STA (05:55)
[2024-01-08] MEDS: SODIUM CHLORIDE 0.9% 1000ML 1,000 ML IV ONE (05:55)
[2024-01-08] MEDS ORDERED: ULTRAM 50MG50 MG PO (07:42)
[2024-01-08 07:50] VITALS: PULSE 59; RESP 18; TEMP 98; O2SAT 99
== END 2024-01-08 07:50 | disposition home or self-care (01) ==
LOC: FSED 05:20
DX: R10.11 Right upper quadrant pain (principal); K80.20 Calculus of gallbladder without cholecystitis without obstruction; R11.0 Nausea
CPT/HCPCS: 76705; 80048; 80076; 81003; 81025; 85025; 99284; J1885; J2405; J7030

== ENCOUNTER 2024-02-21 13:12 | Observation (INO) | payer OTHER ==
[~2024-02-21] VITALS: Ht 170.2 cm; Wt 77.1 kg
[~2024-02-21 13:12] MED LIST changes: +FENTANYL CITRATE/PF 100MCG/2 ML INJ ONE; +MIDAZOLAM HCL 2 MG/2 ML VIAL ONE; +ULTRAM 50MG50 MG PO
[2024-02-21] MEDS ORDERED: NEOSTIGMINE 1 MG/ML 10ML VIAL ONE (13:44)
[2024-02-21] MEDS ORDERED: KETOROLAC TROMETHAMINE 30 MG/ML VIAL ONE (13:44)
[2024-02-21] MEDS ORDERED: PROPOFOL IV EMULSION 10 MG/ML 20 ML VIAL ONE (13:44)
[2024-02-21] MEDS ORDERED: LIDOCAINE HCL 2% LOCAL INJ 5 ML SDV VIAL INJ ONE (13:44)
[2024-02-21] MEDS ORDERED: DEXAMETHASONE SOD PHOS INJ 4 MG/ML SDV ONE (13:44)
[2024-02-21] MEDS ORDERED: GLYCOPYRROLATE INJ 0.2 MG/ML VIAL ONE (13:44)
[2024-02-21] MEDS ORDERED: ROCURONIUM BROMIDE 10 MG/ML 5ML VIAL IV ONE (13:44)
[2024-02-21] MEDS ORDERED: ONDANSETRON HCL INJ 2MG/ML 2ML 2 MG/ML VIAL ONE (13:44)
[2024-02-21 13:53] LABS: BASOPHILS % 0.5 % (0.0-1.0); EOSINOPHILS # (AUTO) 0.2 (0.0-0.4); EOSINOPHILS % 2.3 % (0.0-6.0); HEMATOCRIT 41.5 % (34.2-44.1); HEMOGLOBIN 13.2 g/dL (12.0-16.0); LYMPHOCYTES # (AUTO) 1.9 (1.0-3.2); LYMPHOCYTES % 28.2 % (18.0-39.1); MEAN CORPUSCULAR HEMOGLOBIN 30.1 pg (28-32); MEAN CORPUSCULAR HGB CONC 31.8 g/dL (31-35); MEAN CORPUSCULAR VOLUME 94.5 fL (81-99); MONOCYTES # (AUTO) 0.5 (0.2-0.8); MONOCYTES % 7.3 % (4.4-11.3); NEUTROPHILS # (AUTO) 4.1 (2.1-6.9); NEUTROPHILS % 61.4 % (38.7-80.0); PLATELET COUNT 227 x10e3/uL (140-360); RED BLOOD COUNT 4.39 x10e6/uL (3.6-5.1); RED CELL DISTRIBUTION WIDTH 11.9 % (11.7-14.4); WHITE BLOOD COUNT 6.62 x10e3/uL (4.8-10.8)
[2024-02-21 14:22] LABS: ANION GAP 14.7 mmol/L (8-16); CREATININE, SERUM 0.87 mg/dL (0.57-1.11); POTASSIUM 3.7 mmol/L (3.5-5.1)
[2024-02-21 14:23] LABS: ALBUMIN 4.1 g/dL (3.5-5.0); BILIRUBIN,TOTAL 0.6 mg/dL (0.2-1.2); CALCIUM 9.7 mg/dL (8.4-10.2); TOTAL PROTEIN 8.1 g/dL (6.5-8.1)
[2024-02-21] MEDS: SODIUM CHLORIDE 0.9% 1000ML 1,000 ML IV STA (15:37)
[2024-02-21] MEDS: Morphine 4mg INJECTION 4 MG/ML INJ IV STA (15:37)
[2024-02-21] MEDS: ONDANSETRON HCL INJ 2MG/ML 2ML 2 MG/ML VIAL IV STA (15:38)
[2024-02-21] MEDS ORDERED: SODIUM CHLORIDE FLUSH 10 ML SYR INJ PRN (17:00)
[2024-02-21 20:00] VITALS: BP 113/69; PULSE 67; RESP 18; TEMP 98.1; O2SAT 100
[2024-02-21] MEDS: ONDANSETRON HCL INJ 2MG/ML 2ML 2 MG/ML VIAL IV PRN (20:43)
[2024-02-21] MEDS: Morphine 4mg INJECTION 4 MG/ML INJ IV PRN (20:43)
[2024-02-21] MEDS: SODIUM CHLORIDE 0.9% 1000ML 1,000 ML IV SCH (20:44)
[2024-02-21 20:56] VITALS: PULSE 73; RESP 16; TEMP 98.5
[2024-02-21 21:40] VITALS: BP 113/69; PULSE 67; RESP 18; TEMP 98.1; O2SAT 100
[2024-02-21 21:50] VITALS: BP 113/69; PULSE 67; RESP 18; TEMP 98.1; O2SAT 100
[2024-02-22] VITALS (10 sets, daily range): BP systolic 112–145; BP diastolic 65–92; PULSE 16–79; RESP 16–20; TEMP 97.4–98.2; O2SAT 97–100
[2024-02-22] MEDS ORDERED: ALBUTEROL/IPRATROPIUM 3 ML NEB NEB PRN (01:45)
[2024-02-22] MEDS ORDERED: DEXTROSE 50% SYRINGE 50 ML IV PRN (01:45)
[2024-02-22] MEDS ORDERED: BENZONATATE 100 MG CAP PO PRN (01:45)
[2024-02-22] MEDS ORDERED: DOCUSATE SODIUM 100 MG CAP PO PRN (01:45)
[2024-02-22] MEDS ORDERED: DIPHENHYDRAMINE HCL 25 MG CAP PO PRN (01:45)
[2024-02-22] MEDS ORDERED: LIDOCAINE 4% PATCH TP PRN (01:45)
[2024-02-22] MEDS ORDERED: ACETAMINOPHEN 325 MG TAB PO PRN (01:45)
[2024-02-22] MEDS ORDERED: HYDRALAZINE HCL 20 MG/ML VIAL IV PRN (01:45)
[2024-02-22] MEDS ORDERED: SIMETHICONE 80 MG CHEW PO PRN (01:45)
[2024-02-22] MEDS ORDERED: MELATONIN 5 MG TABLET PO PRN (01:45)
[2024-02-22] MEDS ORDERED: POTASSIUM CHLORIDE 20 MEQ TAB CR PO PRN (01:45)
[2024-02-22] MEDS: PANTOPRAZOLE SOD 40 MG TABEC PO SCH (07:30)
[2024-02-22] MEDS ORDERED: BUPIVACAINE HCL 0.5% INJ 30 ML VIAL INJ ONE (08:51)
[2024-02-22] MEDS ORDERED: SODIUM CHLORIDE 0.9% 1000ML 1,000 ML IV SCH (11:00)
[2024-02-22] MEDS ORDERED: ONDANSETRON HCL INJ 2MG/ML 2ML 2 MG/ML VIAL IV PRN (11:00)
[2024-02-22] MEDS ORDERED: SUGAMMADEX SODIUM 200 MG/2 ML VIAL IV ONE (11:05)
[2024-02-22] MEDS: ACETAMINOPHEN 1000 MG/100 ML 100 ML IV ONE (11:30)
[2024-02-22] MEDS: MEPERIDINE HCL INJ 25 MG/ML VIAL ONE (11:36)
[2024-02-22] MEDS: HYDROCODONE/APAP 5MG-325MG TAB PO PRN (15:00)
[2024-02-22] MEDS: Morphine 4mg INJECTION 4 MG/ML INJ IV PRN (18:05)
[2024-02-22] MEDS: HEPARIN SOD (PORCINE) 5,000 UNIT/ML VIAL SC SCH (21:05)
[2024-02-23 00:57] VITALS: BP 116/67; PULSE 63; RESP 16; TEMP 98.1; O2SAT 99
[2024-02-23 04:00] VITALS: BP 112/63; PULSE 63; RESP 18; TEMP 98.3; O2SAT 100
[2024-02-23 05:46] LABS: BASOPHILS % 0.1 % (0.0-1.0); HEMOGLOBIN 10.7 g/dL (12.0-16.0); LYMPHOCYTES # (AUTO) 1.2 (1.0-3.2); LYMPHOCYTES % 14.6 % (18.0-39.1); MEAN CORPUSCULAR HEMOGLOBIN 29.8 pg (28-32); MEAN CORPUSCULAR HGB CONC 31.5 g/dL (31-35); MEAN CORPUSCULAR VOLUME 94.7 fL (81-99); MONOCYTES # (AUTO) 0.6 (0.2-0.8); MONOCYTES % 7.5 % (4.4-11.3); NEUTROPHILS # (AUTO) 6.5 (2.1-6.9); NEUTROPHILS % 77.3 % (38.7-80.0); PLATELET COUNT 188 x10e3/uL (140-360); RED BLOOD COUNT 3.59 x10e6/uL (3.6-5.1); RED CELL DISTRIBUTION WIDTH 11.6 % (11.7-14.4); WHITE BLOOD COUNT 8.37 x10e3/uL (4.8-10.8)
[2024-02-23 06:07] LABS: ALBUMIN 3.2 g/dL (3.5-5.0); ANION GAP 11.7 mmol/L (8-16); BILIRUBIN,TOTAL 1.2 mg/dL (0.2-1.2); CALCIUM 8.8 mg/dL (8.4-10.2); CREATININE, SERUM 0.87 mg/dL (0.57-1.11); POTASSIUM 3.7 mmol/L (3.5-5.1); TOTAL PROTEIN 6.5 g/dL (6.5-8.1)
[2024-02-23 07:56] VITALS: BP 119/63; PULSE 56; RESP 17; TEMP 99.1; O2SAT 97
[2024-02-23 08:03] VITALS: BP 119/63; PULSE 56; RESP 17; TEMP 99.1; O2SAT 97
[2024-02-23 10:44] VITALS: PULSE 66; RESP 16; O2SAT 99
[2024-02-23 11:40] VITALS: BP 137/89; PULSE 66; RESP 16; TEMP 98.4; O2SAT 100
[2024-02-23] MEDS ORDERED: CEFDINIR300 MG PO (14:45)
[2024-02-23] MEDS ORDERED: METRONIDAZOLE500 MG PO (14:45)
== END 2024-02-23 16:15 | disposition home or self-care (01) ==
LOC: ER 13:37 → ERHOLD 16:51 → MED/SURG2 21:31
PROVIDERS: ADMIT Internal Medicine; ATTEND Internal Medicine
DX: K80.12 Calculus of gallbladder with acute and chronic cholecystitis without obstruction (principal); Z79.899 Other long term (current) drug therapy; Z79.52 Long term (current) use of systemic steroids
CPT/HCPCS: 36415 ×2; 47562; 76705; 80053 ×2; 83690; 85025 ×2; 88304; 94799 ×2; 99284; G0378 ×3; J0131; J0690; J1100; J1644 ×2; J1885; J2001; J2175; J2250; J2270 ×3; J2405 ×2; J2543 ×2; J2704; J2710; J3010; J7030 ×2; S0164

== ENCOUNTER 2024-03-10 19:34 | Inpatient (IN) | payer OTHER ==
[~2024-03-10] VITALS: Ht 170.2 cm; Wt 74.8 kg
[~2024-03-10 19:34] MED LIST changes: +CEFDINIR300 MG PO; -FENTANYL CITRATE/PF 100MCG/2 ML INJ ONE; +METRONIDAZOLE500 MG PO; -MIDAZOLAM HCL 2 MG/2 ML VIAL ONE
[2024-03-10 20:11] VITALS: PULSE 58; RESP 18; TEMP 98.7
[2024-03-10] MEDS: SODIUM CHLORIDE 0.9% 1000ML 1,000 ML IV SCH (20:49)
[2024-03-10] MEDS: Morphine 4mg INJECTION 4 MG/ML INJ IV ONE (20:49)
[2024-03-10] MEDS: ONDANSETRON HCL INJ 2MG/ML 2ML 2 MG/ML VIAL IV STA (20:49)
[2024-03-10] MEDS: PIPERACILLIN/TAZOBACTAM 4.5 GM in SODIUM CHLORIDE 0.9% 100 ML IV SCH (22:30)
[2024-03-11] VITALS (10 sets, daily range): BP systolic 98–117; BP diastolic 49–66; PULSE 48–74; RESP 16–20; TEMP 97.5–98.3; O2SAT 98–100
[2024-03-11] MEDS ORDERED: HYDRALAZINE HCL 20 MG/ML VIAL IV PRN
[2024-03-11] MEDS: SODIUM CHLORIDE 0.9% 1000ML 1,000 ML IV SCH (05:03)
[2024-03-11 05:40] LABS: BASOPHILS % 0.5 % (0.0-1.0); EOSINOPHILS % 0.7 % (0.0-6.0); HEMATOCRIT 35.3 % (34.2-44.1); HEMOGLOBIN 11.2 g/dL (12.0-16.0); LYMPHOCYTES # (AUTO) 2.2 (1.0-3.2); LYMPHOCYTES % 37.2 % (18.0-39.1); MEAN CORPUSCULAR HEMOGLOBIN 30.5 pg (28-32); MEAN CORPUSCULAR HGB CONC 31.7 g/dL (31-35); MEAN CORPUSCULAR VOLUME 96.2 fL (81-99); MONOCYTES # (AUTO) 0.5 (0.2-0.8); MONOCYTES % 8.3 % (4.4-11.3); NEUTROPHILS # (AUTO) 3.1 (2.1-6.9); NEUTROPHILS % 53.1 % (38.7-80.0); PLATELET COUNT 203 x10e3/uL (140-360); RED BLOOD COUNT 3.67 x10e6/uL (3.6-5.1); RED CELL DISTRIBUTION WIDTH 12.5 % (11.7-14.4)
[2024-03-11 06:21] LABS: CHOL/HDL RATIO 3.3 (3.0-3.6); PHOSPHORUS 3.6 MG/DL (2.3-4.7)
[2024-03-11 06:44] LABS: FREE T4 (FREE THYROXINE) 0.77 ng/dL (0.8-1.8); THYROID STIMULATING HORMONE 0.712 uIU/mL (0.350-4.940)
[2024-03-11] MEDS: Morphine 4mg INJECTION 4 MG/ML INJ IV PRN (15:59)
[2024-03-11] MEDS: ONDANSETRON HCL INJ 2MG/ML 2ML 2 MG/ML VIAL IV PRN (16:00)
[2024-03-12] VITALS (11 sets, daily range): BP systolic 105–133; BP diastolic 66–81; PULSE 51–68; RESP 16–20; TEMP 97.5–98.6; O2SAT 100
[2024-03-12 05:54] LABS: BASOPHILS % 0.4 % (0.0-1.0); EOSINOPHILS # (AUTO) 0.2 (0.0-0.4); EOSINOPHILS % 3.5 % (0.0-6.0); HEMATOCRIT 31.3 % (34.2-44.1); HEMOGLOBIN 9.6 g/dL (12.0-16.0); LYMPHOCYTES # (AUTO) 2.2 (1.0-3.2); LYMPHOCYTES % 48.3 % (18.0-39.1); MEAN CORPUSCULAR HEMOGLOBIN 30.1 pg (28-32); MEAN CORPUSCULAR HGB CONC 30.7 g/dL (31-35); MEAN CORPUSCULAR VOLUME 98.1 fL (81-99); MONOCYTES # (AUTO) 0.5 (0.2-0.8); MONOCYTES % 10.6 % (4.4-11.3); NEUTROPHILS # (AUTO) 1.7 (2.1-6.9); PLATELET COUNT 164 x10e3/uL (140-360); RED BLOOD COUNT 3.19 x10e6/uL (3.6-5.1); RED CELL DISTRIBUTION WIDTH 12.2 % (11.7-14.4); WHITE BLOOD COUNT 4.53 x10e3/uL (4.8-10.8)
[2024-03-12 06:20] LABS: ANION GAP 11.7 mmol/L (8-16); CALCIUM 8.7 mg/dL (8.4-10.2); CREATININE, SERUM 0.8 mg/dL (0.57-1.11); POTASSIUM 3.7 mmol/L (3.5-5.1); TOTAL PROTEIN 6.1 g/dL (6.5-8.1)
[2024-03-12 09:37] LABS: BASOPHILS % (MANUAL) 2 % (0-1.5); LYMPHOCYTES % (MANUAL) 53 % (19-48); MONOCYTES % (MANUAL) 8 % (3.4-9.0); NEUTROPHILS % (MANUAL) 37 % (40-74)
[2024-03-12 09:38] LABS: PLATELET ESTIMATE ADEQUATE; PLATELET MORPHOLOGY COMMENT NORMAL; RBC MORPHOLOGY COMMENT NORMAL
[2024-03-12] MEDS ORDERED: FENTANYL CITRATE/PF 100MCG/2 ML INJ ONE (11:41)
[2024-03-12] MEDS ORDERED: IOPAMIDOL 610MG/1ML 300 MG/ML VIAL IV ONE (16:01)
[2024-03-12] MEDS ORDERED: INDOMETHACIN 50 MG SUPP.RECT RC ONE (16:02)
[2024-03-13 05:47] LABS: HEMATOCRIT 34.9 % (34.2-44.1); HEMOGLOBIN 11.4 g/dL (12.0-16.0); LYMPHOCYTES # (AUTO) 0.5 (1.0-3.2); LYMPHOCYTES % 11.3 % (18.0-39.1); MEAN CORPUSCULAR HEMOGLOBIN 30.5 pg (28-32); MEAN CORPUSCULAR HGB CONC 32.7 g/dL (31-35); MEAN CORPUSCULAR VOLUME 93.3 fL (81-99); MONOCYTES # (AUTO) 0.2 (0.2-0.8); NEUTROPHILS # (AUTO) 3.8 (2.1-6.9); NEUTROPHILS % 84.5 % (38.7-80.0); PLATELET COUNT 198 x10e3/uL (140-360); RED BLOOD COUNT 3.74 x10e6/uL (3.6-5.1); RED CELL DISTRIBUTION WIDTH 11.3 % (11.7-14.4); WHITE BLOOD COUNT 4.51 x10e3/uL (4.8-10.8)
[2024-03-13 06:07] LABS: ALBUMIN 3.4 g/dL (3.5-5.0); ALBUMIN/GLOBULIN RATIO 0.9 (0.8-2.0); ANION GAP 14.8 mmol/L (8-16); BILIRUBIN,TOTAL 0.9 mg/dL (0.2-1.2); CALCIUM 9.4 mg/dL (8.4-10.2); CREATININE, SERUM 0.79 mg/dL (0.57-1.11); POTASSIUM 3.8 mmol/L (3.5-5.1); TOTAL PROTEIN 7.2 g/dL (6.5-8.1)
[2024-03-13 07:36] VITALS: PULSE 52; RESP 20; O2SAT 99
[2024-03-13] MEDS ORDERED: SODIUM CHLORIDE 0.9% 100 ML ONE (08:15)
[2024-03-13 08:22] VITALS: BP 117/80; PULSE 66; RESP 16; TEMP 98.6; O2SAT 100
[2024-03-13 09:29] VITALS: BP 117/80; PULSE 66; RESP 16; TEMP 98.6; O2SAT 100
== END 2024-03-13 12:02 | disposition home or self-care (01) | DRG 395 ==
LOC: FSED 19:52 → ERHOLD 22:37 → MED/SURG2 03-11 00:56 → OBSVTOIN 03-11 15:56
PROVIDERS: ADMIT Internal Medicine; ATTEND Internal Medicine
PROC: 0FC98ZZ Extirpation of Matter from Common Bile Duct, Via Natural or Artificial Opening Endoscopic (ICD-10-PCS; principal; 2024-03-12 16:33)
DX: K91.86 Retained cholelithiasis following cholecystectomy (principal); R13.10 Dysphagia, unspecified; R74.01 Elevation of levels of liver transaminase levels; K76.0 Fatty (change of) liver, not elsewhere classified; Z90.49 Acquired absence of other specified parts of digestive tract
CPT/HCPCS: 36415; 43260; 74177; 74181; 74328; 76705; 80048; 80053; 80061; 80076; 81003; 81025; 82150; 83036; 83690; 83735; 84100; 84439; 84443; 85025; 94799; 99252; 99284; G0378; J0360; J2270; J2405; J2470; J2543; J7030; J7050